=== PATIENT | male | born 1970 | race African-American/Black ===

== ENCOUNTER 2017-12-26 03:54 | Emergency (ER) | payer OTHER ==
[~2017-12-26] VITALS: Ht 182.9 cm; Wt 54.4 kg
[~2017-12-26 03:54] MED LIST: NOHOMEMEDICATIONS
[2017-12-26 04:54] LABS: INFLUENZA A ANTIGEN None Detected (None Detect); INFLUENZA B ANTIGEN None Detected (None Detect)
[2017-12-26] MEDS ORDERED: PROMETH-CODEIN 65 ML PO (05:13)
[2017-12-26 05:26] VITALS: BP 169/99
== END 2017-12-26 05:28 | disposition home or self-care (01) ==
LOC: M.ERS 03:54
PROVIDERS: Emergency Medicine
DX: J40 Bronchitis, not specified as acute or chronic (principal); I10 Essential (primary) hypertension; F17.210 Nicotine dependence, cigarettes, uncomplicated